=== PATIENT | female | born 1960 | race Caucasian/White ===

== ENCOUNTER 2017-10-20 21:22 | Inpatient (IN) | payer OTHER ==
[2017-10-20] MEDS ORDERED: ADENOSINE 6 MG/2 ML VIAL ONE (21:34)
--- NOTE | 2017-10-20 21:36 | CPEKG ---
Heart Rate: 203 RR Interval: 296 QRSD Interval: 80 QT Interval: 244 QTC Interval: 448 P [place]: 0 QRS [place]: -15 EKG Severity - ABNORMAL ECG - EKG Impression: SUPRAVENTRICULAR TACHYCARDIA EKG Impression: LOW VOLTAGE IN FRONTAL LEADS EKG Impression: PROBABLE LVH WITH SECONDARY REPOL ABNRM EKG Impression: ST DEPRESSION, PROBABLY RATE RELATED Electronically Signed By: Evon Thomas 20-Oct-2017 23:05:46
[2017-10-20] MEDS ORDERED: NS 500 ML IV ONE (21:39)
[2017-10-20] MEDS ORDERED: ASPIRIN 81 MG CHEWABLE TAB PO ONE (21:39)
[2017-10-20] MEDS ORDERED: ADENOSINE 6 MG/2 ML VIAL IVP ONE ×2 (21:40→22:01)
--- NOTE | 2017-10-20 21:43 | EDPHY ---
H & P Time Seen by Provider: 10/20/17 21:32 HPI/ROS: CHIEF COMPLAINT: Palpitations HISTORY OF PRESENT ILLNESS: Patient is a 57-year-old female who presents emergency department with palpitations. Patient states that over the past month she has had intermittent episodes of palpitations. She felt this was secondary to increased stress at work. She saw her primary care physician, Dr. Diaz who prescribed her benzodiazepine. She states this evening she started to have palpitations more significantly than before. They have been constant. She describes mild shortness of breath. She feels as though she can't take a deep breath. She has no chest pain. No lightheadedness or dizziness. Patient denies any recent drug or alcohol use. No [id number] medicine. REVIEW OF SYSTEMS: My complete review of systems is negative except as mentioned in the HPI. Past Medical/Surgical History: Includes palpitations Past surgical history: Negative Social history: The patient smokes. She drinks alcohol occasionally. No drug use. Family history: Patient's father had palpitations Smoking Status: Current every day smoker Physical Exam: Vitals noted. Tachycardic. GENERAL: Well-appearing, in no acute distress, alert. HEENT: Eyes normal to inspection, normal pharynx, no signs of dehydration. NECK: No thyromegaly, no lymphadenopathy, supple. RESPIRATORY: Clear to auscultation bilaterally, no rales, rhonchi or wheezing. CVS: Tachycardia with regular rhythm, no rubs, murmurs, or gallops. ABDOMEN: Soft, nontender, nondistended, no organomegaly. BACK: Normal to inspection, no CVA tenderness. SKIN: Normal color, no rash, warm, dry. No pallor. EXTREMITIES: No pedal edema, no calf tenderness, no Homans sign or cords, no joint swelling. NEURO/PSYCH: Alert and oriented x3, normal mood and affect, normal motor sensory exam. No obvious cranial nerve deficit. Constitutional: Initial Vital Signs Temperature (C) 36.6 C 10/20/17 21:32 Heart Rate 211 H 10/20/17 21:32 Respiratory Rate 24 H 10/20/17 21:32 Blood Pressure 88/64 L 10/20/17 21:32 O2 Sat (%) 97 10/20/17 21:32 O2 Delivery Mode Non-Rebreather Mask Allergies/Adverse Reactions: No Known Allergies Allergy (Unverified 08/06/13 19:50) Home Medications: Medication Instructions Recorded Cephalexin [Keflex] 500 mg PO QID 10 Days cap 08/06/13 Levothyroxine [Synthroid 25 mcg 25 mcg PO DAILY06 08/06/13 (RX)] Phenazopyridine HCl [Pyridium] 200 mg PO PC #10 tab 08/06/13 RX: Omeprazole 20 mg PO 08/06/13 Medical Decision Making ED Course/Re-evaluation: In the emergency department I met the patient on arrival. I discussed possible etiologies with the patient and her . I answered all her questions. IV was placed. Laboratory studies were obtained. EKG was obtained. EKG showed supraventricular tachycardia at 203. ST depression. Procedure: Valsalva with leg raise I explained the procedure the patient. There is no change in heart rate with the maneuver. Procedure: Carotid massage There is no change with carotid massage Procedure: chemical cardioversion with adenosine I discussed the procedure with the patient. I answered all her questions. I discussed the pros and cons. She consented. Adenosine 12 mg IV was given. The patient converted to sinus tachycardia with the adenosine. However, after a couple of minutes she converted back into SVT. EKG showed supraventricular tachycardia at 193. Mild ST depression On recheck she was mildly hypotensive. She was given 1 L of normal saline. She was not lightheaded or dizzy. Procedure #2: chemical cardioversion with adenosine I discussed the procedure with the patient. I answered all her questions. I discussed the pros and cons. She consented. Adenosine 12 mg IV was given. The patient converted to sinus tachycardia with the adenosine. Repeat EKG showed sinus tachycardia at 109. Borderline prolonged QT. No ST or T-wave abnormality. I discussed the plan with the patient. I answered all her questions. She will be admitted for observation. I discussed the case with . CT angio chest: Please refer the dictated report by Dr. Raz Medeiros. The patient has pulmonary embolus present. Patient is also noted to have a pleural effusion. Dr. Medeiros states this could be pulmonary infarct versus infiltrate. I discussed this with Dr. De La Garza. The patient was noted to have a temperature 37.8 degrees. Her white count was mildly elevated at 11. At this time Dr. De La Garza will evaluate the patient. She is not recommend a treat with antibiotics at this time. I discussed the results with the patient. I answered all her questions. Differential Diagnosis: My differential includes but is not limited to SVT, ACS, acute HI, pulmonary embolus, DVT, electrolyte abnormality, sugar abnormality, dehydration Critical Care Time: The patient required critical care time of 35 min. This was exclusive of any unbundled procedure. This is not including her cardioversion. I spent considerable time the patient's bedside. Patient was noted be hypotensive on arrival. She was hypotensive once again after her initial conversion to sinus rhythm and then conversion back to SVT. - Data Points Laboratory Results: Laboratory Results 10/20/17 21:36 10/20/17 21:36 10/20/17 10/20/17 10/20/17 21:36 21:36 21:36 WBC 10.99 10^3/uL H 10^3/uL (3.80-9.50) RBC 4.36 10^6/uL 10^6/uL (4.18-5.33) Hgb 12.9 g/dL g/dL (12.6-16.3) Hct 37.4 % L % (38.0-47.0) MCV 85.8 fL fL (81.5-99.8) MCH 29.6 pg pg (27.9-34.1) MCHC 34.5 g/dL g/dL (32.4-36.7) RDW 12.0 % % (11.5-15.2) Plt Count 307 10^3/uL 10^3/uL (150-400) MPV 9.6 fL fL (8.7-11.7) Neut % (Auto) 78.0 % H % (39.3-74.2) Lymph % (Auto) 11.3 % L % (15.0-45.0) [place] % (Auto) 9.6 % % (4.5-13.0) Eos % (Auto) 0.3 % L % (0.6-7.6) Baso % (Auto) 0.3 % % (0.3-1.7) Nucleat RBC Rel Count 0.0 % % (0.0-0.2) Absolute Neuts (auto) 8.59 10^3/uL H 10^3/uL (1.70-6.50) Absolute Lymphs (auto) 1.24 10^3/uL 10^3/uL (1.00-3.00) Absolute Monos (auto) 1.05 10^3/uL H 10^3/uL (0.30-0.80) Absolute Eos (auto) 0.03 10^3/uL 10^3/uL (0.03-0.40) Absolute Basos (auto) 0.03 10^3/uL 10^3/uL (0.02-0.10) Absolute Nucleated RBC 0.00 10^3/uL 10^3/uL (0-0.01) Immature Gran % 0.5 % % (0.0-1.1) Immature Gran # 0.05 10^3/uL 10^3/uL (0.00-0.10) D-Dimer 3.11 ug/mLFEU H ug/mLFEU (0.00-0.50) Sodium 139 mEq/L mEq/L (135-145) Potassium 3.2 mEq/L L mEq/L (3.5-5.2) Chloride 102 mEq/L mEq/L (97-110) Carbon Dioxide 23 mEq/l mEq/l (22-31) Anion Gap 14 mEq/L mEq/L (8-16) BUN 10 mg/dL mg/dL (7-23) Creatinine 0.9 mg/dL mg/dL (0.6-1.0) Estimated GFR > 60 Glucose 115 mg/dL H mg/dL (70-100) Calcium 8.8 mg/dL mg/dL (8.5-10.4) Troponin I < 0.012 ng/mL ng/mL (0.000-0.034) Medications Given: Discontinued Medications Adenosine (Adenosine) 12 mg IVP EDNOW ONE Stop: 10/20/17 21:41 Last Admin: 10/20/17 21:48 Dose: 12 mg Adenosine (Adenosine) 12 mg IVP EDNOW ONE Stop: 10/20/17 22:02 Last Admin: 10/20/17 22:06 Dose: 12 mg Aspirin (Aspirin) 324 mg PO EDNOW ONE Stop: 10/20/17 21:40 Last Admin: 10/20/17 22:20 Dose: 324 mg Sodium Chloride (Ns) 500 mls @ 0 mls/hr IV EDNOW ONE; Wide Open PRN Reason: Protocol Stop: 10/20/17 21:40 Last Admin: 10/20/17 21:43 Dose: 500 mls Sodium Chloride (Ns) 1,000 mls @ 0 mls/hr IV ONCE ONE PRN Reason: Wide Open Stop: 10/20/17 21:56 Last Admin: 10/20/17 21:58 Dose: 1,000 mls Sodium Chloride (Ns) 1,000 mls @ 0 mls/hr IV ONCE ONE PRN Reason: Wide Open Stop: 10/20/17 22:11 Last Admin: 10/20/17 22:05 Dose: 1,000 mls Departure - Departure Disposition: [facility] Acute Clinical Impression: Supraventricular tachycardia, Pulmonary infarct Hypotension Qualifiers: Hypotension type: unspecified hypotension type Qualified Code(s): I95.9 - Hypotension, unspecified Pulmonary embolus Qualifiers: Pulmonary embolism type: other Chronicity: acute Acute cor pulmonale presence: without acute cor pulmonale Qualified Code(s): I26.99 - Other pulmonary embolism without acute cor pulmonale Condition: Good
[2017-10-20 21:48] LABS: PLATELET COUNT 307 10^3/uL (150-400)
[2017-10-20] MEDS ORDERED: NS 1,000 ML IV ONE ×2 (21:55→22:10)
[2017-10-20] MEDS ORDERED: IOPAMIDOL (ISOVUE 370) 100 ML BTL IV ONE (22:22)
[2017-10-20] MEDS ORDERED: ENOXAPARIN 100 MG/ML SYR SC ONE (23:00)
[2017-10-20] MEDS ORDERED: diphenhydrAMINE 25 MG CAP PO PRN (23:06)
[2017-10-20] MEDS ORDERED: ONDANSETRON 4 MG/2 ML VIAL IVP PRN (23:06)
[2017-10-20] MEDS ORDERED: ACETAMINOPHEN 325 MG TAB PO PRN (23:06)
[2017-10-20] MEDS ORDERED: PROTOCOL POTASSIUM 1 DOSE MISC PRN (23:10)
[2017-10-20] MEDS ORDERED: NS W/ 20 KCl/L 1,000 ML IV SCH (23:15)
--- NOTE | 2017-10-20 23:48 | PDGENHP ---
History and Physical - Chief Complaint Palpitations, chest pain, shortness of breath - History of Present Illness Source-patient provides history and appears reliable. EMR was reviewed and case discussed with ED provider. HPI - this is a pleasant 57-year-old female with past medical history significant for air [place] neck hypothyroidism, GERD who presents to the emergency department with complaints of severe palpitations. Patient reports intermittent episodes occurring over the past month. She had been following along with her PCP and thought this could be related to increased stressors at work. Patient had been prescribed Valium and this had been controlling her symptoms times. Today patient took a dose of Valium and this did not seem to help her symptoms in fact she was noting increasing shortness of breath and chest pressure like she could not get enough air. Patient today reports a more significant episode of palpitations, dyspnea, chest pain, upper back pain prompting her to present to the emergency department for further evaluation. Patient reports for the last 5 days she has cough. She not look at her sputum so she is unsure if it was discolored, pink-tinged or frothy. Patient denies any history of recent prolonged travel. She has not noted any lower extremity swelling or calf pain. She has been having some upper respiratory type symptoms with cough, rhinorrhea, myalgias and low-grade temperature. Patient denies any known recent sick contacts. She did see her PCP and reports that negative recent flu swab. Patient denies any lower extremity edema. She denies any orthopnea or PND. In the emergency department, patient was noted to be in SVT. She subsequently underwent treatment with adenosine and converted temporarily back to sinus tachycardia. She subsequently underwent additional dosing of adenosine in this time with maintain conversion to sinus tach. D-dimer returned positive a patient underwent CTA of the chest which was revealing for moderate load of bilateral PEs and possible infiltrate versus infarct and a pleural effusion. History Information - Allergies/Home Medication List Allergies/Adverse Reactions: No Known Allergies Allergy (Unverified 08/06/13 19:50) Home Medications: Levothyroxine [Synthroid 25 mcg (RX)] 25 mcg PO DAILY06 08/06/13 [Last Taken Unknown] Omeprazole 20 mg PO 08/06/13 [Last Taken Unknown] I have personally reviewed and updated: family history, medical history, social history, surgical history - Past Medical History Additional medical history: GERD, iatrogenic hypothyroidism, UTI - Surgical History Additional surgical history: Thyroidectomy - Family History Additional family history: Mother-palpitations due to SVT requiring cardioversion. No for known family members with history of DVT or PE. - Social History Smoking Status: Current every day smoker Tobacco Use: Cigarettes Alcohol Use: Occasionally Drug Use: None Additional social history: Patient lives with her significant other Freddie. Cor status-full Review of Systems Review of Systems: ROS: 10pt was reviewed & negative except for what was stated in HPI & below Constitutional: Reports: chills, fever (Patient reports low-grade to 99. ), recent illness. Denies: weight loss EENMT: Reports: nose congestion. Denies: blurred vision, sore throat Cardiac: Reports: chest pain, palpitations. Denies: edema, lightheadedness Respiratory: Reports: cough, shortness of breath. Denies: orthopnea, wheezing Gastrointestinal: Reports: nausea. Denies: vomitting, abdominal pain, diarrhea Genitourinary: Denies: dysuria, hematuria Muscolosketal: Reports: joint pain (Diffuse), muscle pain (Myalgias) Skin: Reports: no symptoms Neurological: Reports: anxiety (Increased stressors at work.), headache ( Occasional), tingling (Bilateral hands currently). Denies: weakness Hematologic/Lymphatic: Reports: no symptoms Physical Exam Physical Exam: Selected Entries 10/20/17 21:32 Heart Rate 211 H Respiratory 24 H Rate O2 Sat (%) 97 Temperature (C) 36.6 C Blood Pressure 88/64 L Mean Arterial 72 Pressure (MAP) O2 Delivery Room Air Mode Temp Pulse Resp BP Pulse Ox 37.6 C 114 H 14 112/74 94 10/20/17 23:41 10/20/17 23:41 10/20/17 23:41 10/20/17 23:13 10/20/17 23:41 O2 (L/minute) 2 Constitutional: no apparent distress, other (Patient appears quite fatigued, acutely ill but nontoxic and slightly pale but otherwise in no acute distress.) Eyes: PERRL (Slightly decreased reactivity to light bilaterally but symmetric.) , anicteric sclera, EOMI, No scleral injection Ears, Nose, Mouth, Throat: dry mucous membranes, other (No nasal discharge), No poor dentition Cardiovascular: no murmur, rub, or gallop, pulses symmetric bilaterally, tachycardia (Regular rhythm.), No edema Peripheral Pulses: 2+: dorsalis-pedis (R), dorsalis-pedis (L) Respiratory: no respiratory distress, reduced air movement (Bibasilar), inspiratory crackles (Right greater than left lung base), other (Occasional cough), No expiratory wheeze, No respiratory distress Gastrointestinal: normoactive bowel sounds, soft, non-tender abdomen, no palpable masses, No tenderness, No distension Genitourinary: no bladder tenderness, No omer in urethra Skin: warm, no rashes or abrasions, other (Slightly pale) Musculoskeletal: generalized weakness (Patient with some difficulty sitting up secondary to complaints of pleuritic chest pain), No no muscle tenderness, No joint effusion, No joint tenderness Neurologic: AAOx3, sensation intact bilaterally, other (Grossly nonfocal. Moves all extremities.), No facial droop Psychiatric: interacting appropriately, not encephalopathic, thought process linear, anxious (Minimally anxious), No agitated Lab Data & Imaging Review 10/20/17 21:36 10/20/17 21:36 WBC 10.99 10^3/uL (3.80-9.50) H 10/20/17 21:36 RBC 4.36 10^6/uL (4.18-5.33) 10/20/17 21:36 Hgb 12.9 g/dL (12.6-16.3) 10/20/17 21:36 Hct 37.4 % (38.0-47.0) L 10/20/17 21:36 MCV 85.8 fL (81.5-99.8) 10/20/17 21:36 MCH 29.6 pg (27.9-34.1) 10/20/17 21:36 MCHC 34.5 g/dL (32.4-36.7) 10/20/17 21:36 RDW 12.0 % (11.5-15.2) 10/20/17 21:36 Plt Count 307 10^3/uL (150-400) 10/20/17 21:36 MPV 9.6 fL (8.7-11.7) 10/20/17 21:36 Neut % (Auto) 78.0 % (39.3-74.2) H 10/20/17 21:36 Lymph % (Auto) 11.3 % (15.0-45.0) L 10/20/17 21:36 [place] % (Auto) 9.6 % (4.5-13.0) 10/20/17 21:36 Eos % (Auto) 0.3 % (0.6-7.6) L 10/20/17 21:36 Baso % (Auto) 0.3 % (0.3-1.7) 10/20/17 21:36 Nucleat RBC Rel Count 0.0 % (0.0-0.2) 10/20/17 21:36 Absolute Neuts (auto) 8.59 10^3/uL (1.70-6.50) H 10/20/17 21:36 Absolute Lymphs (auto) 1.24 10^3/uL (1.00-3.00) 10/20/17 21:36 Absolute Monos (auto) 1.05 10^3/uL (0.30-0.80) H 10/20/17 21:36 Absolute Eos (auto) 0.03 10^3/uL (0.03-0.40) 10/20/17 21:36 Absolute Basos (auto) 0.03 10^3/uL (0.02-0.10) 10/20/17 21:36 Absolute Nucleated RBC 0.00 10^3/uL (0-0.01) 10/20/17 21:36 Immature Gran % 0.5 % (0.0-1.1) 10/20/17 21:36 Immature Gran # 0.05 10^3/uL (0.00-0.10) 10/20/17 21:36 D-Dimer 3.11 ug/mLFEU (0.00-0.50) H 10/20/17 21:36 Sodium 139 mEq/L (135-145) 10/20/17 21:36 Potassium 3.2 mEq/L (3.5-5.2) L 10/20/17 21:36 Chloride 102 mEq/L (97-110) 10/20/17 21:36 Carbon Dioxide 23 mEq/l (22-31) 10/20/17 21:36 Anion Gap 14 mEq/L (8-16) 10/20/17 21:36 BUN 10 mg/dL (7-23) 10/20/17 21:36 Creatinine 0.9 mg/dL (0.6-1.0) 10/20/17 21:36 Estimated GFR > 60 10/20/17 21:36 Glucose 115 mg/dL (70-100) H 10/20/17 21:36 Calcium 8.8 mg/dL (8.5-10.4) 10/20/17 21:36 Magnesium 2.0 mg/dL (1.6-2.3) 10/20/17 21:36 Troponin I < 0.012 ng/mL (0.000-0.034) 10/20/17 21:36 Imaging Review: Chest, One View Portable, October 20, 2017 at 2205 hours History: Chest pain. Comparison: None. Findings: Cardiac silhouette is normal in size. Alveolar opacity in the left lung apex, which may represent pneumonia. Right lung is clear. No pneumothorax. Impression: 1. Suspect left upper lobe pneumonia. 2. Recommend follow up until clear. CT Chest Pulmonary Angiogram With Contrast Enhancement and Multiplanar Reconstructions at 2235 hours History: Dyspnea , elevated d-dimer, chest pain Comparison: None. Technique: 1.25 mm axial multidetector helical CT angiogram imaging was performed through the chest while 75 mL Isovue-370 were injected intravenously without complication. The images were then transferred to an independent workstation where multiplanar and three- dimensional reconstructions were performed by the interpreting physician and reviewed at multiple windows. Dose reduction techniques were utilized. CT Pulmonary Angiogram Findings: Multiple bilateral intraluminal pulmonary thromboemboli in the upper and lower lobes as well as right middle lobe consistent with moderate volume pulmonary thromboemboli. No central saddle embolus. No pericardial effusion. No aortic aneurysm or dissection. CT Chest Findings: Small left pleural effusion. Left lower lobe opacity which may represent atelectasis, pneumonitis, or pulmonary infarct. Additional similar opacity in the posterior segment of the left upper lobe also noted. No right pleural effusion or infarct. No significant mediastinal or hilar adenopathy. Impression: 1. Positive bilateral pulmonary thromboemboli, moderate volume. 2. Small left pleural effusion. 3. Left lower lobe and left upper lobe opacities representing atelectasis, pneumonitis, or pulmonary infarct. Visualized and Interpreted Chest x-ray results: Yes EKG additional interpertation: Initial EKG reviewed showing SVT with ST depressions in multiple leads likely rate related. Telemetry so showing sinus tach in the low 100s. Assessment & Plan Assessment: Pleasant 57-year-old female with history of hypothyroidism and Schneider's esophagus who presents to the emergency department with severe palpitations, bilateral chest pain radiating to her back and dyspnea. Patient was noted to be in SVT upon arrival to the ED. #Pulmonary embolus (Acute) - bilateral with moderate clot burden. Therapeutic Lovenox have been ordered and given in the emergency department. Will plan to continue this at this time until day team can evaluate and assess on consideration for newer agents versus Coumadin if compatible with patient's insurance coverage. #Supraventricular tachycardia (Acute) - status post conversion with adenosine x2 in the ED. Will monitor closely on telemetry. #Hypotension (Acute) - blood pressure is improved with rate control and conversion to sinus rhythm. Likely rate related. Patient will continue with the gentle IV fluid hydration. #Pulmonary infarct (Acute) - right upper lobe infiltrate noted on chest x-ray and likely infarct on CT related to patient's PE. Patient however has complained of some subjective fevers chills and cannot rule out infiltrate on in addition to patient's infarct and effusion. Will initiate antibiotic coverage empirically at this time with azithromycin and Rocephin. Patient has been afebrile since arrival here and white count is minimally elevated but could also be explained due to patient's acute process with PE and infarct. #Pleural effusion - secondary to acute PE and infarct. Echocardiogram has been ordered for a.m.. #Pleuritic chest pain - secondary to a fusion, infarct and PE. [place] and morphine available p.r.n. #Hypokalemia - replacement protocol and in full IV fluids ordered. Chronic medical problems #Iatrogenic hypothyroidism - continue patient's levothyroxine replacement. Checking a TSH in setting of patient's SVT #GERD/Schneider's esophagus - continue PPI #Tobacco abuse - in setting of acute PE I did would review with the patient at recommendation to quit tobacco immediately. If patient should develop concerns of tobacco withdrawal will consider a Nicoderm patch p.r.n.. #Allergic rhinitis-resume patient's Flonase FEN - IV fluid NS + K for gentle IV fluid hydration and replacement. Electrolyte monitoring and replacement as above. Will also check a magnesium. PPX-therapeutic Lovenox. SCDs. Ppi. Cor status-full. Patient desires significant other Freddie or her parents to act as proxy if needed. Disposition-patient admitted to inpatient status at this time in setting of SVT with moderate clot burden PE. Anticipate greater than 2 midnight stay at this time.
[2017-10-20] MEDS: HYDROCODONE/APAP 5/325 TAB PO PRN (23:53)
[2017-10-21] MEDS ORDERED: AZITHROMYCIN IV 500 MG in NS 250 ML IV ONE (00:52)
[2017-10-21] MEDS ORDERED: GUAIFENESIN/DM 10 ML UDCUP PO PRN (00:54)
[2017-10-21] MEDS ORDERED: BENZONATATE 100 MG CAP PO PRN (00:54)
[2017-10-21] MEDS ORDERED: POTASSIUM CL 10 MEQ TAB PO ONE (01:19)
[2017-10-21] MEDS: LORazepam 0.5 MG TAB PO PRN (01:44)
[2017-10-21 07:46] LABS: PLATELET COUNT 246 10^3/uL (150-400)
--- NOTE | 2017-10-21 08:06 | CPEKG ---
Heart Rate: 79 RR Interval: 759 P-R Interval: 168 QRSD Interval: 90 QT Interval: 416 QTC Interval: 477 P [place]: 59 QRS [place]: -11 T Wave [place]: 7 EKG Severity - NORMAL ECG - EKG Impression: SINUS RHYTHM Electronically Signed By: Rajiv Witt 21-Oct-2017 08:22:39
--- NOTE | 2017-10-21 08:34 | CPEKG ---
Heart Rate: 193 RR Interval: 311 QRSD Interval: 78 QT Interval: 264 QTC Interval: 473 P [place]: 0 QRS [place]: -18 T Wave [place]: 40 EKG Severity - ABNORMAL ECG - EKG Impression: SUPRAVENTRICULAR TACHYCARDIA EKG Impression: BORDERLINE LEFT AXIS DEVIATION EKG Impression: LOW VOLTAGE IN FRONTAL LEADS EKG Impression: MINIMAL ST DEPRESSION, INFERIOR LEADS EKG Impression: NONSPECIFIC T ABNORMALITIES, LATERAL LEADS Electronically Signed By: Evon Thomas 21-Oct-2017 22:55:02
--- NOTE | 2017-10-21 08:35 | CPEKG ---
Heart Rate: 109 RR Interval: 550 P-R Interval: 156 QRSD Interval: 88 QT Interval: 364 QTC Interval: 491 P [place]: 61 QRS [place]: -20 T Wave [place]: 40 EKG Severity - ABNORMAL ECG - EKG Impression: SINUS TACHYCARDIA EKG Impression: VENTRICULAR PREMATURE COMPLEX EKG Impression: PROBABLE LEFT ATRIAL ABNORMALITY EKG Impression: BORDERLINE LEFT AXIS DEVIATION EKG Impression: BORDERLINE PROLONGED QT INTERVAL Electronically Signed By: Evon Thomas 21-Oct-2017 22:55:02
--- NOTE | 2017-10-21 08:58 | ECHO ---
[email or web address] [address] Main: [phone] Fax: Transthoracic Echocardiogram Name: GABY CHEUNG MR#: [id number] Study Date: 10/21/2017 Study Time: 07:40 AM Date of : 1960 Age: 57 year(s) Height: 180.3 cm (71 in.) Weight: 88.45 kg (195 lb.) BSA: 2.09 m2 Gender: Female Examination: Echo Indication: Supraventricular Tachycardia, PE, HYPOTENSION Image Quality: Adequate Contrast: Requested by: Farzana De La Garza BP: 101 mmHg/63 mmHg Heart Rate: Rhythm: Indication: Supraventricular Tachycardia, PE, HYPOTENSION Procedure Staff Programming Coordinator: Gina Smith [facility] Reading Physician: Ailyn Cadena MD Requesting Provider: Conclusions: Normal size left ventricle. Mild concentric LV hypertrophy. Normal global systolic LV function. EF is 52 %. Normal diastolic LV function. Subtle inferior hypokinesis. Normal size right ventricle. Normal RV function. The left atrium is mildly dilated. Mild mitral valve regurgitation is present. Mild aortic valve regurgitation is present. Mild tricuspid regurgitation is present. Right ventricular systolic pressure measures 27mmHg. The pulmonary artery pressure is normal. There is no previous echocardiogram for comparison. Measurements: Chambers Valvular Assessment AV/MV Valvular Assessment TV/PV Normal Normal Normal Name Value Range Name Value Range Name Value Range Ao Fay (2D): 3.8 cm (1.4 cm-2.6 AV Vmax: 1.02 m/s (1 m/s-1.7 TR Vmax: 2.33 mm/s ( - ) cm) m/s) TR PGmax: 22 mmHg ( - ) IVSd (2D): 1.2 cm (0.6 cm-1.1 AV maxP mmHg ( - ) syst. PAP: 27 mmHg ( - ) cm) AV meanP mmHg ( - ) PV Vmax: 0.61 m/s (0.6 m/s-0.9 LVDd (2D): 4.4 cm (3.9 cm-5.3 LVOT Vmax: 0.74 m/s (0.7 m/s-1.1 m/s) cm) m/s) PV PGmax: 1 mmHg ( - ) LVDs (2D): 3.2 cm (2.1 cm-4 JOSIAS (Vmax): 2.5 cm2 ( - ) cm) JOSIAS (VTI): 3.2 cm ( - ) LVPWd (2D): 1.1 cm ( - ) MV E Vmax: 0.74 m/s ( - ) Patient: GABY CHEUNG Study Date: 10/21/2017 Page 1 of 2 07:40 AM LVOTd 2.1 cm 2.1 cm mm MV A Vmax: 0.58 m/s ( - ) LVEF (BP): 52 % (>=55 %) MV E/A: 1.28 ( - ) RVDd(2D): 3.0 cm (1.9 cm-3.8 MV PHT: 0.067 s ( - ) cmmm) MVA (PHT): 3.3 s ( - ) Continued Measurements: Chambers Valvular Assessment AV/MV Valvular Assessment TV/PV Name Value Name Value Name Value LADs: 4.0 cm MV DecTime: 204 m/s CVP (est.): 5 mmHg LADs Lon.9 cm MV E/E' Septal: 8.60 LA Area: 22.0 cm2 MV E/E' Lateral: 5.60 LA Volume: 75 ml LA Volume Index: 35.9 ml/m2 RA Area: 17.0 cm2 Additional Vessels Name Value Ao Ascendin.3 cm Inferior Vena Cava: 2.4 cm Findings: Left Ventricle: Normal size left ventricle. Mild concentric LV hypertrophy. Normal global systolic LV function. EF is 52 %. Normal diastolic LV function. Subtle inferior hypokinesis. Right Ventricle: Normal size right ventricle. Normal RV function. Left Atrium: The left atrium is mildly dilated. Right Atrium: The right atrium is normal in size. Mitral Valve: The mitral valve is normal in appearance and function. Mild mitral valve regurgitation is present. No mitral stenosis is present. Aortic Valve: The aortic valve is normal in appearance and function. Mild aortic valve regurgitation is present. No aortic valve stenosis is present. Tricuspid Valve: The tricuspid valve is normal in appearance and function. Mild tricuspid regurgitation is present. Right ventricular systolic pressure measures 27mmHg. The pulmonary artery pressure is normal. Pulmonic Valve: The pulmonic valve is normal in appearance and function. There is no pulmonic regurgitation seen. Aorta: The aorta is normal. IVC: The IVC is dilated. Pericardium: No pericardial effusion. No pleural effusion. (No Signature Object) Patient: GABY CHEUNG Study Date: 10/21/2017 Page 2 of 2 07:40 AM [id number]
[2017-10-21] MEDS: HYDROCODONE/APAP 5/325 TAB PO PRN ×3 (09:09→20:26)
[2017-10-21] MEDS: ENOXAPARIN 100 MG/ML SYR SC SCH ×2 (09:09→20:26)
[2017-10-21] MEDS ORDERED: FLUTICASONE NASAL 120 SPRAYS/16 GM MDI EACHNARE PRN (10:15)
[2017-10-21] MEDS ORDERED: DIAZEPAM 5 MG TAB PO PRN (10:15)
--- NOTE | 2017-10-21 11:11 | PDMN ---
Medical Necessity Medical necessity: Patient meets inpatient criteria per physician note and MCG M - 290 PE (new onset intermittent severe palpitations past month/found to be in SVT, syst B/P 80's to 90's; bilateral PE, moderat volume, with sm L pleural effusion, poss pulm infarct vs infiltrate; anticipated LOS > 2 midnights for gentle IV hydration, initiation of empiric IV antibiotics, cardiac monitoring s/ p converstion to RSR w/Adenosine x 2.)
[2017-10-21] MEDS: LEVOTHYROXINE 150 MCG TAB PO SCH (11:24)
[2017-10-21] MEDS: PANTOPRAZOLE SODIUM 40 MG TAB PO SCH (11:24)
--- NOTE | 2017-10-21 11:59 | ASMTCASEMG ---
Living Arrangements What is your living Answers: With Partner arrangement? Who do you live with? Type Of Residence What kind of residence do Answers: House you live in? Discharge Plan Comments Coordination Status Comments Notes: Pts case discussed in tx rounds. Pt is a 57 y/o female admitted for ST. Pt will most likely d/c independent when medically stable. No therapies ordered at this time. CM available for changes. Plan: Independent Date Signed: 10/21/2017 11:58 AM Electronically Signed By:ASIA Blank
--- NOTE | 2017-10-21 14:24 | HOSPPROG ---
Hospitalist Progress Note Assessment/Plan: #Bilateral PE -CTA: Bilateral PE's, moderate volume -TTE: EF 52%, RVSP: 27mmHg -Cont Lovenox for now, consider transition to oral med soon -Check bilateral LE US to r/o DVT #Acute on Chronic Respiratory Failure -etiology multifactorial #Hypotension: -Etiology unclear, possibly from PE, possibly from infection -Cont IVF #SVT/Palpitations, acute on chronic. Has been intermittent since her 20's -Monitor Tele for now #JASBIR Pneumonia: -cont Rocephin and Azithromycin #Bilateral Leg pain, doppler per above #Tobacco Abuse disorder, cessation counseling provided Dispo: inpatient Subjective: + low BP, + STARKS, still with pleuritic chest pain. Difficulty getting a deep breath. Objective: Vital Signs Temp Pulse Resp BP Pulse Ox 36.7 C 81 12 106/68 93 10/21/17 11:38 10/21/17 11:38 10/21/17 11:38 10/21/17 11:38 10/21/17 11:38 Laboratory Results 10/21/17 07:39 10/21/17 07:39 10/20/17 10/21/17 10/22/17 05:59 05:59 05:59 Intake Total 3305 Output Total 200 600 Balance 3105 -600 - Physical Exam Constitutional: no apparent distress, appears nourished Eyes: PERRL, EOMI Ears, Nose, Mouth, Throat: moist mucous membranes, hearing normal Cardiovascular: regular rate and rhythym, No JVD, No edema Respiratory: no respiratory distress, reduced air movement Gastrointestinal: normoactive bowel sounds, soft, non-tender abdomen Genitourinary: no bladder fullness Skin: warm Neurologic: AAOx3 Psychiatric: interacting appropriately, not anxious, not encephalopathic, thought process linear Lymph, Heme, Immunologic: No petechiae ICD10 Worksheet Patient Problems: Problems Problem Status Onset Hypotension Acute Pulmonary embolus Acute Pulmonary infarct Acute Supraventricular tachycardia Acute
[2017-10-21] MEDS: AZITHROMYCIN IV 250 MG in NS 250 ML IV SCH (23:31)
[2017-10-22] MEDS: HYDROCODONE/APAP 5/325 TAB PO PRN ×5 (00:27→22:53)
[2017-10-22] MEDS: LORazepam 0.5 MG TAB PO PRN ×2 (00:27→22:54)
[2017-10-22 04:29] LABS: PLATELET COUNT 289 10^3/uL (150-400)
[2017-10-22] MEDS: LEVOTHYROXINE 150 MCG TAB PO SCH (07:56)
[2017-10-22] MEDS: PANTOPRAZOLE SODIUM 40 MG TAB PO SCH (07:56)
[2017-10-22] MEDS: AZITHROMYCIN IV 250 MG in NS 250 ML IV SCH (08:50)
[2017-10-22] MEDS: ENOXAPARIN 100 MG/ML SYR SC SCH ×2 (11:31→20:54)
--- NOTE | 2017-10-22 12:41 | HOSPPROG ---
Hospitalist Progress Note Assessment/Plan: 57-year-old is admitted with palpitations and shortness of breath and found to have bilateral pulmonary embolus. # bilateral pulmonary embolus, moderate volume. Patient doing well hemodynamically. Will transition dual agents once we know what her insurance will pay for * Case management to check with insurance regarding oral agents * Continue Lovenox for now * Small right lower extremity DVT noted * Not provoked, however she is very sedentary at work sitting in front of a computer several hours at a time * Will need to determine with her primary care provider, Dr. Diaz length of therapy after 6 months # hypotension, resolved will discontinue IV fluids # SVT on admission. Intermittent since her 20s, continue monitoring on telemetry consider outpatient follow-up with Cardiology if they persist # pulmonary infiltrates noted on CT angiogram. Unclear if pneumonia verses infarct. Will recheck chest x-ray and likely to continue antibiotics on discharge # tobacco use, cessation counseling # back pain likely related to her PE will do a trial of Lidoderm patches Subjective: Patient new to me and chart reviewed. Patient complains of bilateral upper back pain which is quite severe at times. And some pleurisy Objective: Vital Signs Temp Pulse Resp BP Pulse Ox 36.8 C 87 20 136/73 H 90 L 10/22/17 07:40 10/22/17 07:40 10/22/17 07:40 10/22/17 07:40 10/22/17 07:40 Laboratory Results 10/22/17 03:57 10/22/17 03:57 10/21/17 10/22/17 10/23/17 05:59 05:59 05:59 Intake Total 3305 1530 Output Total 200 2300 Balance 3105 -770 - Physical Exam Constitutional: uncomfortable Eyes: PERRL, EOMI Ears, Nose, Mouth, Throat: moist mucous membranes Cardiovascular: regular rate and rhythym Respiratory: no respiratory distress, no rales or rhonchi, clear to auscultation Gastrointestinal: normoactive bowel sounds Genitourinary: no bladder fullness Skin: warm, normal color Neurologic: AAOx3 Psychiatric: interacting appropriately, not anxious ICD10 Worksheet Patient Problems: Problems Problem Status Onset Supraventricular tachycardia Acute Hypotension Acute Pulmonary embolus Acute Pulmonary infarct Acute
[2017-10-22] MEDS ORDERED: WARFARIN SODIUM 7.5 MG TAB PO ONE (16:00)
[2017-10-22] MEDS: LIDOCAINE 4%/MENTHOL 1% PATCH TD SCH (16:24)
--- NOTE | 2017-10-22 17:24 | ASMTCMCOM ---
CM Note CM Note Notes: Spoke with ; pt with bilateral PEs & DVT; request to check with pt's insurance provider regarding coverage for oral agent. Spoke with Harrison, at pt's pharmacy, [facility]; Harrison reports all blood thinning agents will require prior auth except for Warfarin. MD updated. Anticipate dc home tomorrow with support of significant other. CM available if needs/changes. Date Signed: 10/22/2017 05:23 PM Electronically Signed By:Ayana Mata RN
[2017-10-22] MEDS ORDERED: POTASSIUM CL 10 MEQ TAB PO ONE (19:50)
[2017-10-22] MEDS ORDERED: PATCH REMOVAL 1 EA PATCH TD SCH (21:00)
[2017-10-23] MEDS: HYDROCODONE/APAP 5/325 TAB PO PRN ×3 (04:05→14:46)
[2017-10-23] MEDS: PANTOPRAZOLE SODIUM 40 MG TAB PO SCH (04:06)
[2017-10-23] MEDS: LEVOTHYROXINE 150 MCG TAB PO SCH (04:06)
[2017-10-23 04:37] LABS: PLATELET COUNT 334 10^3/uL (150-400)
[2017-10-23 04:44] LABS: INR 1.17 (0.83-1.16); PROTIME(PATIENT) 15.1 SEC (12.0-15.0)
[2017-10-23] MEDS: LIDOCAINE 4%/MENTHOL 1% PATCH TD SCH (08:52)
[2017-10-23] MEDS ORDERED: AZITHROMYCIN 250 MG TAB PO SCH (09:00)
[2017-10-23] MEDS ORDERED: POTASSIUM CL 10 MEQ TAB PO ONE ×2 (09:41→15:15)
[2017-10-23] MEDS ORDERED: ENOXAPARIN 150 MG/ML SYR SC SCH (10:00)
[2017-10-23] MEDS ORDERED: DILTIAZEM CD 120 MG CAP PO SCH (10:30)
[2017-10-23 11:22] VITALS: BP 100/58
--- NOTE | 2017-10-23 12:37 | PDHOMEO2F ---
Home Oxygen Face to Face Home Orders: I certify that a physician or a nurse practitioner or physician's carpenter assistant installer has had a [id number]-[id number] encounter with this patient on the date of this order due to the diagnosis listed, which relates to the primary reason the patient requires home oxygen. Alternative treatments have been tried, or considered, and deemed ineffective. It is anticipated that supplemental oxygen will result in improvement with treatment. Home oxygen qualifying diagnosis: Pulmonary embolis SpO2 on room air (%): 87% Frequency of home oxygen needed: continuous Home oxygen liters per minute: 2 Home oxygen delivery device: nasal cannula Concentrator: Yes E-tanks for mobility and back up: Yes If ordering portable O2, is the patient mobile in the home?: Yes I certify that, based on these findings, the home oxygen is medically necessary for this patient for the following length of time. Length of time home oxygen needed: 1 month (may discontinue oxygen when room air sats are improved.)
--- NOTE | 2017-10-23 13:05 | GDS ---
[f rep st] DISCHARGE SUMMARY DIAGNOSES: 1. Moderate volume pulmonary embolus. 2. Supraventricular tachycardia. 3. Anxiety. PROCEDURES DONE: 1. Chest and thoracic CT angiogram. Moderate volume PE. 2. Echocardiogram. EF 52%. Normal global systolic LV function. Right ventricular systolic pressur e measures 27. 3. Lower extremity Dopplers. Small volume DVT in the right popliteal vein. HOSPITAL COURSE: The patient is a 57-year-old with a long history of palpitations, who comes in with worsening palpitations and was found to be in SVT. Further evaluation revealed she had a moderate v olume pulmonary embolism and was started on Lovenox. Over the course of her hospitalization, she was feeling much better. However, she continued to have some pleuritic chest pain, which was treated wi th medications. Her vital signs stabilized. She was no longer hypotensive or tachycardic. Througho ut her stay, she had no further episodes of SVT. However, given her history, Cardiology recommended starting her on diltiazem CD and following up with Dr. Rios as an outpatient. She did remain mildly h ypoxic at times especially with rest, so she will be sent home on oxygen. We did have difficulty con tacting her insurance over the weekend as far as blood thinners, so she will be given a 1 month suppl y of Eliquis to their program. She will be on Eliquis for at least 4 weeks starting at 10 mg twice d aily for 7 days, and then 5 mg twice daily thereafter. Dr. Diaz can convert her to warfarin as sondra jackson as an outpatient. She did receive some Coumadin teaching here in the hospital. Again, her insuran ce will cover Coumadin but will not cover any of the new oral anticoagulants or Lovenox. That is why she will be given a 1 month supply of Eliquis on her way out of the door with bridging. CONDITION ON DISCHARGE: Good. Vital signs are stable. Oxygen sats with exertion are up to 94, mckeon sharon, she does drop to 84 with rest. DISCHARGE MEDICATIONS: Please see discharge medication form. New medications include Cardizem CD 12 0 daily. She can hold this if it makes her lightheaded or dizzy. She did receive a dose in the hosp ital. She will also be started on Eliquis 10 mg twice daily for 7 days and then 5 mg twice daily. S he can convert over to warfarin as an outpatient. She was given some pain medications as well for he r pleurisy. Please see med reconciliation form for full details. FOLLOW UP INSTRUCTIONS: She needs follow up with Dr. Diaz this week, and Dr. Rios's office will conta ct her for followup appointment as well. TOTAL TIME SPENT: With patient on day of discharge and coordination of care is 40 minutes. /[id number]/MODL
--- NOTE | 2017-10-23 14:02 | PDHOMEO2F ---
Home Oxygen Face to Face Home Orders: I certify that a physician or a nurse practitioner or physician's ict sales assistant has had a toux-jz-awji encounter with this patient on the date of this order due to the diagnosis listed, which relates to the primary reason the patient requires home oxygen. Alternative treatments have been tried, or considered, and deemed ineffective. It is anticipated that supplemental oxygen will result in improvement with treatment. Home oxygen qualifying diagnosis: pulmonary embolis SpO2 on room air (%): 87% Frequency of home oxygen needed: continuous Home oxygen liters per minute: 2 Home oxygen delivery device: nasal cannula Concentrator: Yes E-tanks for mobility and back up: Yes If ordering portable O2, is the patient mobile in the home?: Yes I certify that, based on these findings, the home oxygen is medically necessary for this patient for the following length of time. Length of time home oxygen needed: 1 month
--- NOTE | 2017-10-23 15:37 | ASDISCHSUM ---
Discharge Information Plan Status:Home with No Needs Medically Cleared to Leave:10/23/2017 Discharge Date:10/23/2017 CM D/C Disposition:Home, Routine, Self-Care ADT D/C Disposition:Home, Routine, Self-Care Projected Discharge Date:10/23/2017 04:00 PM Transportation at D/C:Family Discharge Delay Reason: Follow-Up Date:10/23/2017 04:00 PM Discharge Slot: Final Diagnosis:Pulmonary embolus, Tachy, Anxiety Placement Information Patient Contact Information Contact Name:LILLIE Relationship:Other Address:[facility] [address] Phone: City:[facility] Phone: [facility]/Zip Code:[place] [address] Email: Financial Information Financial Class:HMO and PPO Plans Primary Plan Desc:HMO [place] [employer] Primary Plan Number:[id number] Secondary Plan Desc: Secondary Plan Number: Assessment Information LACE LACE Length of stay for Answers: 3 days current admission Acuity / Level of Answers: Yes Care: Did the patient have an inpatient admission? Comorbidities - select Answers: Other Notes: Air tradjenta neck all that apply hypothyroidism, GERD, U TI # of Emergency department Answers: 1-2 visits in the last 6 months Score: 8 Date Signed: 10/23/2017 03:36 PM Electronically Signed By:Darline Coelho LCSW [facility] Initial CM Assessment Living Arrangements What is your living Answers: With Partner arrangement? Who do you live with? Type Of Residence What kind of residence do Answers: House you live in? Discharge Plan Comments Coordination Status Comments Notes: Pts case discussed in tx rounds. Pt is a 57 y/o female admitted for ST. Pt will most likely d/c independent when medically stable. No therapies ordered at this time. CM available for changes. Plan: Independent Date Signed: 10/21/2017 11:58 AM Electronically Signed By:ASIA Blank [facility] CM Progress Note CM Note CM Note Notes: Spoke with MD; pt with bilateral PEs & DVT; request to check with pt's insurance provider regarding coverage for oral agent. Spoke with Harrison, at pt's pharmacy, [facility]; Harrison reports all blood thinning agents will require prior auth except for Warfarin. MD updated. Anticipate dc home tomorrow with support of significant other. CM available if needs/changes. Date Signed: 10/22/2017 05:23 PM Electronically Signed By:Ayana Mata RN Case Management Discharge Plan Note Case Management Discharge Discharge Order Complete? Answers: Yes Patient to Obtain Answers: via Family Medications Transportation Arranged Answers: Family/Friends Transport will Pick (Date 10/23/2017 04:00 PM & Time) Family Notified Answers: Yes Notes: to transport Discharge Comments Notes: Patient has been discharge home w/. She was sent home with a free 30 day trial of Eliquis and Dr Diaz will determine whether she will stay on that or switch over to Warfarin as an out-pt. No other needs. Date Signed: 10/23/2017 03:35 PM Electronically Signed By:Darline Coelho LCSW Intervention Information
[2017-10-23] MEDS ORDERED: WARFARIN SODIUM 5 MG TAB PO SCH (16:00)
== END 2017-10-23 17:01 | disposition home or self-care (01) | DRG 308 ==
LOC: OBSVTOIN 22:29 → F2W 23:22
PROVIDERS: ADMIT Family Medicine; ATTEND Internal Medicine
PROC: 3E033RZ Introduction of Antiarrhythmic into Peripheral Vein, Percutaneous Approach (ICD-10-PCS; principal; 2017-10-20)
DX: I47.1 Supraventricular tachycardia (principal); I26.99 Other pulmonary embolism without acute cor pulmonale; J90 Pleural effusion, not elsewhere classified; J96.20 Acute and chronic respiratory failure, unspecified whether with hypoxia or hypercapnia; J18.9 Pneumonia, unspecified organism; I95.9 Hypotension, unspecified; R07.89 Other chest pain; F17.210 Nicotine dependence, cigarettes, uncomplicated; E03.2 Hypothyroidism due to medicaments and other exogenous substances; K21.9 Gastro-esophageal reflux disease without esophagitis; E87.6 Hypokalemia; J30.9 Allergic rhinitis, unspecified; M54.6 Pain in thoracic spine
CPT/HCPCS: 96374; J0153; J0456; J0696; J1650; J2270; Q9967

== ENCOUNTER → 2017-12-24 | Outpatient (CLI) | payer OTHER | LOC: FIMAGING 08:21 | PROVIDERS: ATTEND Internal Medicine Hematology & Oncology | DX: Z12.31 Encounter for screening mammogram for malignant neoplasm of breast (principal) ==

== ENCOUNTER → 2017-12-28 | Outpatient (CLI) | payer OTHER | LOC: FIMAGING 11:12 | PROVIDERS: ATTEND Family Medicine | DX: R22.43 Localized swelling, mass and lump, lower limb, bilateral (principal); Z86.718 Personal history of other venous thrombosis and embolism; Z86.711 Personal history of pulmonary embolism; Z79.01 Long term (current) use of anticoagulants ==

== ENCOUNTER 2018-04-04 06:51 | Observation (INO) | payer OTHER ==
[2018-04-04] MEDS ORDERED: NS 1,000 ML IV ONE (07:12)
[2018-04-04] MEDS ORDERED: ASPIRIN EC 325 MG TAB PO ONE (07:12)
[2018-04-04] MEDS ORDERED: diphenhydrAMINE 25 MG CAP PO ONE (07:12)
[2018-04-04] MEDS ORDERED: DIAZEPAM 5 MG TAB PO ONE (07:12)
[2018-04-04] MEDS ORDERED: FAMOTIDINE 20 MG TAB PO ONE (07:12)
[2018-04-04 08:05] LABS: PLATELET COUNT 229 10^3/uL (150-400)
[2018-04-04] MEDS ORDERED: HEPARIN 10,000 UNIT/10 ML MDV (1,000 UNIT/ML) ONE (08:16)
[2018-04-04] MEDS ORDERED: LIDOCAINE 1% 300 MG/30 ML SDV ONE (08:16)
[2018-04-04] MEDS ORDERED: BUPIVACAINE 0.75% 10 ML SDV ONE (08:17)
[2018-04-04] MEDS ORDERED: ISOPROTERENOL HCL/D5W 0.2 MG/50 ML BAG IV ONE (08:17)
[2018-04-04 08:22] LABS: INR 1.29 (0.83-1.16); PROTIME(PATIENT) 16.3 SEC (12.0-15.0)
[2018-04-04] MEDS ORDERED: CITRIC ACID/SODIUM CITRATE 30 ML UDCUP PO ONE (08:23)
[2018-04-04] MEDS ORDERED: MIDAZOLAM 2 MG/2 ML VIAL IVP ONE (08:24)
--- NOTE | 2018-04-04 08:24 | PDANEPAE ---
ANE History of Present Illness ep/svt ANE Past Medical History - Cardiovascular History Hx Hypertension: No Hx Arrhythmias: Yes Hx Chest Pain: No Hx Coronary Artery / Peripheral Vascular Disease: No Hx CHF / Valvular Disease: No Hx Palpitations: No - Pulmonary History Hx COPD: No Hx Asthma/Reactive Airway Disease: No Hx Recent Upper Respiratory Infection: No Hx Oxygen in Use at Home: No Hx Sleep Apnea: No Pulmonary History Comment: PE in november - Neurologic History Hx Cerebrovascular Accident: No Hx Seizures: No Hx Dementia: No - Endocrine History Hx Diabetes: No Hypothyroid: No Hyperthyroid: No - Renal History Hx Renal Disorders: No - Liver History Hx Hepatic Disorders: No - Neurological & Psychiatric Hx Hx Neurological and Psychiatric Disorders: No - GI History GERD: moderate - Chronic Pain History Chronic Pain: No ANE Review of Systems Review of Systems: - Exercise capacity Exercise capacity: >=4 METS ANE Patient History - Allergies Allergies/Adverse Reactions: No Known Allergies Allergy (Verified 03/28/18 14:44) - Home Medications Home medications: home medication list seen and reviewed Home Medications: Omeprazole 20 mg PO DAILY 08/06/13 [Last Taken 04/03/18] Diazepam [Valium 5 MG (*)] 5 - 10 mg PO DAILY PRN 10/21/17 [Last Taken 04/03/18 15:00] Fluticasone Nasal [Flonase Nasal [place]] 1 - 2 spray EACHNARE DAILY PRN 10/21/17 [Last Taken 04/03/18] Levothyroxine [Synthroid 150 mcg (*)] 150 mcg PO DAILY06 10/21/17 [Last Taken ] Acetaminophen [Tylenol Extra Strength] 1,000 mg PO TID PRN 03/28/18 [Last Taken Unknown] Carvedilol [Coreg (*)] 6.25 mg PO BIDMEAL 03/28/18 [Last Taken 04/02/18] Cholecalciferol Vit D3 [Vitamin D3 (*)] 1,000 units PO DAILY 03/28/18 [Last Taken 04/02/18] Warfarin Sodium [Coumadin 5MG (*)] 10 mg PO MOTUTHFRSA@03/28/18 [Last Taken 03/24/18] Warfarin Sodium [Coumadin 5MG (*)] 12.5 mg PO SUWE@03/28/18 [Last Taken 03/29] - NPO status NPO Status: no food or drink >8 hours - Smoking Hx Smoking Status: Former smoker ANE Labs/Vital Signs - Labs Result Diagrams: 04/04/18 07:40 04/04/18 07:40 - Vital Signs Height: 180 cm Weight: 88 kg ANE Physical Exam - Airway Mallampati Score: Class 2 Mouth exam: normal dental/mouth exam - Pulmonary Pulmonary: no respiratory distress - Cardiovascular Cardiovascular: regular rate and rhythym - ASA Status ASA Status: II ANE Anesthesia Plan Anesthesia Plan: general endotracheal anesthesia
[2018-04-04] MEDS ORDERED: PROPOFOL 200 MG/20 ML VIAL ONE (08:28)
[2018-04-04] MEDS ORDERED: fentaNYL 100 MCG/2 ML INJ ONE (08:28)
[2018-04-04] MEDS ORDERED: ONDANSETRON 4 MG/2 ML VIAL ONE (08:32)
[2018-04-04] MEDS ORDERED: ROCURONIUM 100 MG/10 ML VIAL ONE (08:32)
[2018-04-04] MEDS ORDERED: DEXAMETHASONE 4 MG/ML VIAL ONE (08:32)
--- NOTE | 2018-04-04 08:47 | PDGENHP ---
History & Physical Chief Complaint: svt Relevant Physical Exam: s1s2 rrr. cta. ao3 Cardiorespiratory Assessment: svt for ablation
[2018-04-04] MEDS ORDERED: PHENYLEPHRINE 10 MG/ML SDV ONE (09:39)
[2018-04-04] MEDS ORDERED: ePHEDrine SULFATE 25 MG/5 ML SYR ONE (09:52)
[2018-04-04] MEDS ORDERED: SUGAMMADEX SODIUM 200 MG/2 ML VIAL IVP ONE (10:32)
[2018-04-04] MEDS ORDERED: PROTAMINE SULFATE 50 MG/5 ML VIAL IVP ONE (10:34)
[2018-04-04] MEDS ORDERED: DIAZEPAM 5 MG TAB PO PRN (10:49)
[2018-04-04] MEDS ORDERED: NALOXONE HCL 0.4 MG/ML INJ IVP PRN (10:51)
[2018-04-04] MEDS ORDERED: ONDANSETRON 4 MG/2 ML VIAL IVP PRN (10:51)
[2018-04-04] MEDS ORDERED: fentaNYL 100 MCG/2 ML INJ IVP PRN (10:51)
[2018-04-04] MEDS ORDERED: NS 500 ML IV PRN (10:51)
[2018-04-04] MEDS ORDERED: ALBUTEROL 3 ML DEYVIAL IH PRN (10:51)
--- NOTE | 2018-04-04 10:51 | POSTANESTH ---
Post Anesthetic Evaluation Cardiovascular Status: Normal, Stable Respiratory Status: Normal, Stable Level of Consciousness/Mental Status: Can Participate in Eval Pain Control: Adequate, Prn Tx Ordered Nausea/Vomiting Control: Adequate, Prn Tx Ordered Complications Possibly Related to Anesthesia: None Noted
--- NOTE | 2018-04-04 10:56 | EPPROC ---
Electrophysiology Procedure Note: ELECTROPHYSIOLOGIC STUDY AND CATHETER MEDIATED ABLATION OF SLOW/FAST AV KVNG REENTRY TACHYCARDIA PROCEDURES PERFORMED: 88445-23 EP evaluation with RA/RV/LA pace/record, with arrhythmia induction 59524-31 EP evaluation with RA/RV pace record, insert/reposition catheter, with arrhythmia induction 24776 Intracardiac catheter ablation, SVT arrhythmogenic focus 11404 3D mapping Fluoroscopy INDICATION: Recurrent SVT PROCEDURE: Catheters & Anesthesia: The patient arrived in the Electrophysiology Laboratory in the fasting state. The right clavicular region, right groin, and left groin area were prepped and draped in the usual sterile manner. Anesthesiologist Dr. Arabella Walker administered general anesthesia. Appropriate non-invasive blood pressure, pulse oximetry and end-tidal CO2 monitoring was established. All catheters were placed percutaneously using the modified Seldinger technique , and advanced into position under fluoroscopic guidance. One #6 Telugu hexapolar non-deflectable electrode catheter was inserted into the right atrial appendage via the left femoral vein (2mm spacing; except the proximal ring which was 25cm from the tip used for unipolar recordings). One #7 Telugu deflectable octapolar electrode catheter was advanced to the His-bundle position via the left femoral vein (2mm spacing). One #7 Telugu deflectable quadrapolar catheter was advanced to the anteroseptal right ventricle via the right femoral vein. One #7 Telugu deflectable catheter with 10 pairs of electrodes was placed via the right femoral vein into the coronary sinus. Heparin was given to keep ACT > 300 s. Programmed stimulation was performed from the right atrium, right ventricle and coronary sinus (left atrium). Parahisian pacing demonstrated constant H-A interval with changing V-A intervals and stimulus-A intervals during capture and loss of capture of proximal RBB proving retrograde conduction over AV node. AVNRT was induced easily during infusion of isoproterenol 1-2 mcg/min. Ventricular extrastimuli delivered during tachycardia without altering antegrade His bundle activation did not advance next atrial potential, indicating that the tachycardia was not utilizing an accessory pathway for retrograde conduction. VA interval was 15 ms. Post entrainment of the tachycardia from the ventricle, there was VAHV response. Mapping of the right atrium and coronary sinus during AVNRT identified earliest atrial activation above the tendon of Tl at a level slightly posterior to the level of the His bundle, consistent with retrograde conduction over the fast AV kvng pathway. A #8 Telugu deflectable quadrapolar electrode catheter (2mm-5mm-2mm spacing) with 4 mm tip electrode and sensor for the 3D mapping Carto system was advanced to the right atrium. 3 D mapping of the inter-atrial septum and coronary sinus was performed and location of the AV node was marked. A Mobi sheath was used. RF applications were delivered to the region between the tricuspid annulus and the coronary sinus ostium, at the level of the upper edge of the coronary sinus ostium. Radiofrequency applications were also delivered along the roof of the proximal coronary sinus. Junctional rhythm occurred during all of the RF applications. Programmed stimulation was continued post ablation at baseline and during graded doses of isoproterenol upto 4mcg/min. Sustained AVNRT was not inducible. There were 2 echo beats. The catheters were removed. The long sheath was changed to a short 9 Fr sheath. The patient was transferred to the cardiovascular holding area in stable condition. Vascular access sheaths were removed in the holding area. There were no apparent complications. Results: A. Spontaneous Intervals: Pre ablation SCL 830 ms AH 80 ms HV 40 ms Post ablation SCL 690 ms AH 70 ms HV 40 ms B. Antegrade AV kvng function (decremental pacing) Pre ablation FPERP 400 ms SPERP 390 ms WBB CL 380 ms Post ablation FPERP 340 ms WBB CL 330 ms C. Retrograde AV kvng function (decremental pacing) Pre ablation FPERP 370 ms WBB CL 360 ms D. Arrhythmias: Sustained slow/fast AVNRT Cycle length 310 ms, AH interval 240 ms, STARKS interval 70 ms VA interval 17 ms CONCLUSIONS 1. 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 ( Slow/fast AVNRT). 2. Successful ablation of the slow AV kvng pathway with elimination of 1:1 antegrade conduction over the slow AV kvng pathway, all retrograde conduction over the slow AV kvng pathway and the inducibility of AVNRT. 3. No complications. Patient Problems: Problems Problem Status Onset Hypotension Acute Pulmonary embolus Acute Pulmonary infarct Acute Supraventricular tachycardia Acute
--- NOTE | 2018-04-04 11:22 | CPEKG ---
Test Reason : OPEN Blood Pressure : / mmHG Vent. Rate : 069 BPM Atrial Rate : 069 BPM P-R Int : 158 ms QRS Dur : 096 ms QT Int : 433 ms P-R-T Axes : 051 -25 -01 degrees QTc Int : 464 ms Sinus rhythm Inferior infarct, old Confirmed by Braulio Burrows ([id number]) on 04/04/2018 11:21:48 AM Referred By: Confirmed By:Braulio Burrows
--- NOTE | 2018-04-04 12:18 | CPEKG ---
Test Reason : Blood Pressure : / mmHG Vent. Rate : 078 BPM Atrial Rate : 078 BPM P-R Int : 140 ms QRS Dur : 102 ms QT Int : 434 ms P-R-T Axes : 040 -25 -01 degrees QTc Int : 495 ms Sinus rhythm Borderline left axis deviation Abnormal R-wave progression, early transition Borderline prolonged QT interval Confirmed by Braulio Burrows ([id number]) on 04/04/2018 12:17:51 PM Referred By: Confirmed By:Braulio Burrows
[2018-04-04] MEDS: FLUTICASONE NASAL 120 SPRAYS/16 GM MDI EACHNARE PRN (13:04)
[2018-04-04] MEDS: ACETAMINOPHEN 500 MG TAB PO PRN ×2 (14:19→20:42)
[2018-04-04] MEDS: CARVEDILOL 6.25 MG TAB PO SCH (20:42)
[2018-04-04] MEDS ORDERED: WARFARIN SODIUM 5 MG TAB PO SCH (21:00)
[2018-04-05 04:27] LABS: INR 1.26 (0.83-1.16)
[2018-04-05 04:36] LABS: CREATINE KINASE 88 IU/L (0-156)
[2018-04-05] MEDS ORDERED: LEVOTHYROXINE 150 MCG TAB PO SCH (06:00)
[2018-04-05] MEDS: CARVEDILOL 6.25 MG TAB PO SCH (08:12)
[2018-04-05] MEDS: ACETAMINOPHEN 500 MG TAB PO PRN (08:27)
[2018-04-05] MEDS: FLUTICASONE NASAL 120 SPRAYS/16 GM MDI EACHNARE PRN (08:29)
[2018-04-05] MEDS ORDERED: PANTOPRAZOLE SODIUM 40 MG TAB PO SCH (09:00)
[2018-04-05] MEDS ORDERED: CHOLECALCIFEROL VIT D3 1,000 UNITS TAB PO SCH (09:00)
[2018-04-05 12:11] VITALS: BP 126/74
--- NOTE | 2018-04-05 14:27 | ECHO ---
[email or web address] [address] [address] Main: [phone] Fax: Transthoracic Echocardiogram Name: GABY CHEUNG MR#: [id number] Study Date: 04/05/2018 Study Time: 07:24 AM Date of : 1960 Age: 57 year(s) Height: 177.8 cm (70 in.) Weight: 88 kg (194 lb.) BSA: 2.06 m2 Gender: Female Examination: Echo Indication: F/U Post EP Study Image Quality: Adequate Contrast: Requested by: Jared Rios BP: 119 mmHg/67 mmHg Heart Rate: Rhythm: Indication: F/U Post EP Study Procedure Staff Dual Rate Supervisor: Gina Smith RDCS Reading Physician: Ilia Tian MD Requesting Provider: Conclusions: Normal size left ventricle. No LV hypertrophy. Normal global systolic LV function. EF is 58 %. No regional wall motion abnormality. Normal diastolic LV function. Normal size right ventricle. Normal RV function. The left atirum is borderline dilated. The right atrium is normal in size. The mitral valve is normal in appearance and function. The tricuspid valve is normal in appearance and function. Trivial to mild tricuspid valve regurgitation. Right ventricular systolic pressure measures 24mmHg. There is no pulmonic regurgitation seen. The aorta is normal. Normal size aortic root measuring 3.4 cm. Normal size ascending aorta measuring 4.0 cm. No pericardial effusion. No pleural effusion. No evidence of early complication post EP study. Measurements: Chambers Valvular Assessment AV/MV Valvular Assessment TV/PV Normal Normal Normal Name Value Range Name Value Range Name Value Range Ao Fay (2D): 3.4 cm (1.4 cm-2.6 AV Vmax: 0.97 m/s (1 m/s-1.7 TR Vmax: 2.18 mm/s ( - ) cm) m/s) TR PGmax: 19 mmHg ( - ) AV maxP mmHg ( - ) syst. PAP: 24 mmHg ( - ) Patient: GABY CHEUNG Study Date: 04/05/2018 Page 1 of 3 07:24 AM IVSd (2D): 1.1 cm (0.6 cm-1.1 AV meanP mmHg ( - ) PV Vmax: 0.76 m/s (0.6 m/s-0.9 cm) JOSIAS (VTI): 3.3 cm ( - ) m/s) LVDd (2D): 4.6 cm (3.9 cm-5.3 MV E Vmax: 0.66 m/s ( - ) PV PGmax: 2 mmHg ( - ) cm) MV A Vmax: 0.58 m/s ( - ) LVDs (2D): 2.9 cm (2.1 cm-4 MV E/A: 1.14 ( - ) cm) MV PHT: 0.070 s ( - ) LVPWd (2D): 1.0 cm ( - ) MVA (PHT): 3.1 s ( - ) LVOTd 2.3 cm 2.3 cm mm LVEF (BP): 58 % (>=55 %) RVDd(2D): 3.6 cm (1.9 cm-3.8 cmmm) Continued Measurements: Chambers Valvular Assessment AV/MV Valvular Assessment TV/PV Name Value Name Value Name Value LADs: 3.7 cm MV DecTime: 222 m/s CVP (est.): 5 mmHg LADs Lon.8 cm MV E' Septal: 0.08 m/s LA Area: 21.0 cm2 MV E/E' Septal: 8.30 LA Volume: 66 ml MV E/E' Lateral: 5.00 LA Volume Index: 32.0 ml/m2 RA Area: 19.3 cm2 Additional Vessels Name Value Ao Ascendin.0 cm Inferior Vena Cava: 1.6 cm Findings: Left Ventricle: Normal size left ventricle. No LV hypertrophy. Normal global systolic LV function. EF is 58 %. No regional wall motion abnormality. Normal diastolic LV function. Right Ventricle: Normal size right ventricle. Normal RV function. Left Atrium: The left atirum is borderline dilated. Right Atrium: The right atrium is normal in size. Mitral Valve: The mitral valve is normal in appearance and function. Mild mitral valve regurgitation is present. No mitral stenosis is present. Aortic Valve: The aortic valve is tri-leaflet. Mild aortic valve regurgitation is present. No aortic valve stenosis is present. Tricuspid Valve: The tricuspid valve is normal in appearance and function. Trivial to mild tricuspid valve regurgitation. The pulmonary artery pressure is normal. Right ventricular systolic pressure measures 24mmHg. Pulmonic Valve: The pulmonic valve is normal in appearance and function. There is no pulmonic regurgitation seen. Aorta: The aorta is normal. Normal size aortic root measuring 3.4 cm. Normal size ascending aorta measuring 4.0 cm. IVC: The IVC is normal sized. Pericardium: No pericardial effusion. No pleural effusion. Patient: GABY CHEUNG Study Date: 04/05/2018 Page 2 of 3 07:24 AM (No Signature Object) Patient: GABY CHEUNG Study Date: 04/05/2018 Page 3 of 3 07:24 AM [id number]
--- NOTE | 2018-04-05 14:32 | GDS ---
ADMISSION DIAGNOSES: 1. Paroxysmal supraventricular tachycardia. 2. History of pulmonary embolisms. 3. Hypothyroidism. DISCHARGE DIAGNOSES: 1. History of paroxysmal supraventricular tachycardia. 2. Status post atrioventricular mickey reentrant tachycardia ablation for paroxysmal supraventricular tachycardia. 3. History of pulmonary embolisms. 4. Hypothyroidism. PROCEDURES PERFORMED DURING HOSPITALIZATION: 1. Electrocardiogram. 2. Electrophysiology procedure. 3. AVNRT ablation. 4. Echocardiogram. BRIEF HISTORY: Please see H and P. Briefly, the patient is a 57-year-old female, who has been noted to have episodes of PSVT, she reports that this has been associated with lightheadedness, she can us ually have these stop with drinking water. She has been tried on and she was still contin uing having episodes despite being put on beta-sanchez therapy, she had been tried on diltiazem, in w hich she noted pedal edema. She was evaluated by Dr. Rios, who felt that she would be an appropriate candidate to undergo electrophysiology study and if necessary, ablation. HOSPITAL COURSE: Patient admitted through CVC, prepped for procedure, and taken to the electrophysio logy lab. There, Dr. Rios performed electro physiology procedure, in which an AV mickey reentry tachyc ardia using the slow AV mickey pathway for antegrade conduction in the for retrograde condu ction was noted. At that time, ablation was performed, eliminating the one-to-one antegrade conducti on. No post ablation, no arrhythmias were noted. No complications. Patient was transfer red to the CVC and ultimately to the PCU for overnight observation. There, she has maintained sinus rhythm with no malignant arrhythmias or pauses per continuous cardiac monitoring. She denies of any chest pressure, pain, shortness of breath. She has been up and walking the unit without difficulties , reporting no bleeding issues from access sites. PHYSICAL EXAMINATION: Done today, GENERAL APPEARANCE: Medium-built, well-groomed female. She is alert and oriented to person, place, time, and situation. Appears to be under no acute distr ess. VITAL SIGNS: Current vital signs are blood pressure of 126/74, heart rate of 55, sinus bradyca rdia on the monitor. Respirations are 20, saturating 95% on room air. Temperature 36.7 degrees Cels ius. HEENT: Head is normocephalic. Lips and tongue are pink and moist with no signs of cyanosis, c onjunctivae pink. NECK: Trachea is midline, +2 carotid pulses bilateral. No auscultated bruits, no jugular vein distention. RESPIRATORY: Lungs are clear to auscultation, no rhonchi, rales, or wheez es, no accessory muscle use, no intercostal muscle retraction noted. CARDIAC: Regular rate, regular rhythm, S1, S2, no S3, S4, gallops, rubs, or murmurs noted. ABDOMEN: Soft, nontender, bowel sounds x4 quadrants, no organomegaly, no palpable masses. SKIN: [place], warm, dry, no cyanosis, no clubbing , no peripheral edema. VASCULAR: +2 carotids bilateral, +2 radials bilateral, +2 dorsal pedal and p osterior tibial pulses bilateral. Catheter insertion site, bilateral groin sites, with sutures remov ed intact, with no redness, swelling, drainage, ecchymosis, or hematoma. Normal CMS checks to lower extremities. LABORATORY STUDIES: Laboratory studies drawn today show WBC of 5.99, hemoglobin 11.5, hematocrit of 34.9, platelet count of 205. INR of 1.26, sodium of 139, potassium 4.1, chloride 108, CO2 was 25, BU N 11, creatinine 0.7, glucose 87, calcium 9.0, magnesium 2.0. CK of 88, CK-MB fraction 1.28. Troponi n of 0.119. Note, expected elevated cardiac enzymes status post ablation. PROCEDURES,: Electrophysiology procedure as mentioned above. Ablation as mentioned above. Electroc ardiogram today shows sinus rhythm, with borderline left axis deviation, early R-wave transition in t he precordial leads, inverted T-wave in lead III. Preliminary of echocardiogram done today showing n ormal LV systolic function with no wall motion abnormalities, normal ejection fraction, no effusion. DISCHARGE DISPOSITION: Patient will be discharged home in stable condition. She is under activity r estrictions of not lifting more than 10 pounds for the next week and no strenuous activity for the ne xt 2 weeks. DISCHARGE MEDICATIONS: Please see discharge medication reconciliation sheet. Note, patient has been started on her regular home doses of warfarin, her INRs are followed by Oncology, she is scheduled t o have an INR check this Tuesday. No bridging necessary. Per Dr. Rios. DISCHARGE INSTRUCTIONS: Post-SVT ablation discharge instructions went over with the patient and her , including activity restrictions, monitoring for bleeding precautions, medication compliance, monitoring for signs of infection. The patient has a followup appointment set with Dr. Rios on er at 11:45 a.m. At the time of discharge, patient and verbalized understanding of all instructions and have no questions or concerns. The patient has been told that if any problems or co ncerns come up post-discharge, they are to call our office or return to the clinic. Total time spent on discharge: Greater than 30 minutes. /[id number]/MODL
[2018-04-05] MEDS ORDERED: WARFARIN SODIUM 5 MG TAB PO SCH (21:00)
--- NOTE | 2018-04-06 11:56 | CPEKG ---
Test Reason : OPEN Blood Pressure : / mmHG Vent. Rate : 058 BPM Atrial Rate : 058 BPM P-R Int : 153 ms QRS Dur : 098 ms QT Int : 452 ms P-R-T Axes : 047 -21 -11 degrees QTc Int : 445 ms Sinus rhythm Borderline left axis deviation Abnormal R-wave progression, early transition Borderline T abnormalities, inferior leads Confirmed by Braulio Burrows ([id number]) on 04/06/2018 11:55:35 AM Referred By: Confirmed By:Braulio Burrows
== END 2018-04-05 12:45 | disposition home or self-care (01) ==
LOC: FCATH 06:51 → UNDOADMOB 07:01 → F2W 07:01 → EDSTATUS 08:30 → F2W 11:39
PROVIDERS: ADMIT Internal Medicine Cardiovascular Disease; ATTEND Internal Medicine Cardiovascular Disease
DX: I47.1 Supraventricular tachycardia (principal); Z86.711 Personal history of pulmonary embolism; E03.9 Hypothyroidism, unspecified
CPT/HCPCS: 93005; 93306; 93613; 93621; 93623; 93653; C1730; C1732; G0378; C1731; C1766; J1100; J1644; J2250; J2370; J2405; J2704; J2720; J3010